=== PATIENT | female | born 1975 | race Caucasian/White ===

== ENCOUNTER → 2020-07-05 | Outpatient (CLI) | payer OTHER ==
--- NOTE | 2020-07-05 18:14 | EKG REPORT ---
SEVERITY:- ABNORMAL ECG - SINUS RHYTHM PROBABLE LEFT VENTRICULAR HYPERTROPHY : Confirmed by: Bismark Araujo MD 05-Jul-2020 18:14:06
== END ==
LOC: OD 14:06
PROVIDERS: ATTEND Nurse Practitioner Family
DX: R00.2 Palpitations (principal)
CPT/HCPCS: 93005; 93010